=== PATIENT | male | born 1995 | race Caucasian/White ===

== ENCOUNTER 2017-10-02 23:57 | Emergency (ER) | payer OTHER ==
[2017-10-03] MEDS ORDERED: Ibuprofen TAB* 400 MG PO ONE (02:31)
--- NOTE | 2017-10-03 02:34 | ED ---
Lower Extremity - HPI Summary HPI Summary: 31 presents to ED with complaints of right knee pain after injuring it while playing soccer just prior to arrival. Patient states he was running into lunge , twisted, abruptly stopped, heard and felt a pop. Has been unable to bear weight on it since. Applied Rakesh wrap. No obvious swelling or bruising. No other complaints or injuries. No previous injury to knee. Denies numbness and tingling - History of Current Complaint Chief Complaint: EDExtremityLower Stated Complaint: RIGHT LEG INJURY Time Seen by Provider: 10/03/17 02:20 Hx Obtained From: Patient Mechanism Of Injury: Twisted Onset of Pain: Immediate Onset/Duration: Hours Severity Initially: Mild Severity Currently: Mild Pain Intensity: 2 Pain Scale Used: 0-10 Numeric - When at rest Timing: Constant Location: Is Discrete @ - Right knee Character Of Pain: Aching, Stiffness Associated Signs And Symptoms: Positive: Knee Pain - Right Aggravating Factor(s): Standing, Movement - Bending, Weight Bearing Alleviating Factor(s): Rest Able to Bear Weight: No - due to pain - Allergies/Home Medications Allergies/Adverse Reactions: Allergies Allergy/AdvReac Type Severity Reaction Status Date / Time No Known Allergies Allergy Verified 10/03/17 00:00 PMH/Surg Hx/FS Hx/Imm Hx Endocrine/Hematology History: Denies: Hx Anticoagulant Therapy, Hx Diabetes Cardiovascular History: Denies: Hx Hypertension Respiratory History: Denies: Hx Asthma - Surgical History Surgery Procedure, Year, and Place: None - Immunization History Immunizations Up to Date: Yes Infectious Disease History: No Infectious Disease History: Reports: Traveled Outside the [place] in Last 30 Days - Family History Known Family History: Positive: None - Social History Alcohol Use: Occasionally Substance Use Type: Reports: None Smoking Status (MU): Never Smoked Tobacco Review of Systems Constitutional: Negative Cardiovascular: Negative Respiratory: Negative Positive: Arthralgia, Myalgia, Decreased ROM - right knee Skin: Negative Neurological: Negative All Other Systems Reviewed And Are Negative: Yes Physical Exam Triage Information Reviewed: Yes Vital Signs On Initial Exam: Initial Vitals Temp Pulse Resp BP Pulse Ox 99.3 F 95 16 101/62 96 10/02/17 23:59 10/02/17 23:59 10/02/17 23:59 10/02/17 23:59 10/02/17 23:59 Vital Signs Reviewed: Yes Appearance: Positive: Well-Appearing, No Pain Distress, Well-Nourished Skin: Positive: Warm, Skin Color Reflects Adequate Perfusion, Dry, Other - No ecchymosis or edema. Negative: Cold, Cyanosis @, Pale, Erythema @ Head/Face: Positive: Normal Head/Face Inspection Eyes: Positive: Conjunctiva Clear ENT: Positive: Hearing grossly normal Respiratory/Lung Sounds: Positive: Clear to Auscultation, Breath Sounds Present. Negative: Rales, Rhonchi, Wheezes Cardiovascular: Positive: Normal, RRR, Pulses are Symmetrical in both Upper and Lower Extremities - 2+. Negative: Murmur, Rub Musculoskeletal: Positive: Strength/ROM Intact - Full range of motion but pain with flexion of right knee. No obvious laxity noted with special test. No tenderness to palpation of right knee. Patella intact. No obvious swelling or signs of trauma, Pain @ - With movement of right knee, Other - No crepitus or step-off no lower leg or ankle pain. Negative: Limited @, Interruption @, Abnormal @ Neurological: Positive: Normal, Sensory/Motor Intact, Alert, Oriented to Person Place, Time, NV Bundle Intact Distally, Unable to Assess Gait - Due to pain and injury Diagnostics - Vital Signs Vital Signs Temp Pulse Resp BP Pulse Ox 10/02/17 23:59 99.3 F 95 16 101/62 96 - Laboratory Lab Statement: Any lab studies that have been ordered have been reviewed, and results considered in the medical decision making process. Lower Extremity Course/Dx - Course Course Of Treatment: X-ray did not appear necessary due to mechanism of injury and physical exam findings. Appears to have suffered a knee sprain with probable ligamentous injury. Patient given knee immobilizer, ibuprofen, crutches. Follow-up with orthopedics. Nonweightbearing. Continue ibuprofen, rest, ice, elevation, compression home. Rakesh wrap applied underneath immobilizer. No other concerns at this time. Normal vitals and normal physical exam otherwise. Aware of worsening signs and symptoms to watch out for. All questions were answered. Patient agrees and understands plan - Diagnoses Differential Diagnosis/HQI/PQRI: Positive: Fracture (Closed), Sprain, Strain Provider Diagnoses: Right knee sprain Discharge - Sign-Out/Discharge Documenting (check all that apply): Discharge - Discharge Plan Condition: Good Disposition: HOME Patient Education Materials: Knee Sprain (ED), ACL Injury (ED), Knee Immobilizer (ED) Referrals: Jacinta Juarez MD [Medical Doctor] - Additional Instructions: Continue taking ibuprofen for pain and inflammation. Keep knee in the immobilizer and use crutches. Do not bear weight until seen by orthopedics. Call and make an appointment with orthopedics tomorrow morning. Rest ice and elevate knee. Any new or worsening symptoms. Seek medical attention. Follow-up with PCP as well as Ortho. - Billing Disposition and Condition Condition: GOOD Disposition: HOME
[2017-10-03 03:09] VITALS: BP 117/78
== END 2017-10-03 03:09 | disposition home or self-care (01) ==
LOC: ED 23:57
DX: S83.91XA Sprain of unspecified site of right knee, initial encounter (principal); X50.0XXA Overexertion from strenuous movement or load, initial encounter; Y93.66 Activity, soccer; Y92.9 Unspecified place or not applicable
CPT/HCPCS: 99282